=== PATIENT | female | born 1955 | race Caucasian/White ===

== ENCOUNTER 2017-05-02 08:11 | Inpatient (IN) | payer OTHER ==
[2017-04-18 09:34] VITALS: BP 117/88
[~2017-05-02] VITALS: Ht 162.6 cm; Wt 58.8 kg
[~2017-05-02 08:11] MED LIST: ACYC-113 PO; ADRENAL SUPPORT PO; ASCO10004 PO; Allergy Shots SQ; BACITRACIN 50,000 UNIT ONE; BUPIVACAINE/PF 0.5% ONE; CALC-534 PO; CEPH-368 PO; CYCL-259 PO; CYCL1DRO EACHEYE; CYCL5TAB PO; DICL75TA2 PO; DOXY100C2 PO; EPINEPHRINE 1 MG/ML, 1ML ONE; ESTR1TAB7 PO; FIBER PO; FLAX100029 PO; FOLI400T4 PO; GLUC1TAB27 PO; LACT1CAP35 PO; MELO7.5T31 PO; METH750T87 PO; OXYC-302 PO; THROMBIN 5,000 UNIT VIAL TP ONE; TRAM50TA2 PO; VANCOMYCIN 1,000 MG ONE; [UNRECOGNIZED DRUG - CODE] PO; magnesium PO; natural thyroid PO
[2017-05-02] MEDS ORDERED: LIDOCAINE 1%, 2ML ONE (12:08)
[2017-05-02] MEDS ORDERED: LACTATED RINGERS 1,000 ML IV SCH (12:29)
[2017-05-02] MEDS ORDERED: REMIFENTANIL 2 MG ONE (13:16)
[2017-05-02] MEDS ORDERED: PROPOFOL 0 ML ONE (13:16)
[2017-05-02] MEDS ORDERED: KETAMINE 10 MG/ML, 20ML ONE (13:21)
[2017-05-02] MEDS ORDERED: MIDAZOLAM 1 MG/ML, 2ML ONE (13:22)
[2017-05-02] MEDS ORDERED: FENTANYL PF 100 MCG/2ML ONE ×3 (13:22→17:20)
[2017-05-02] MEDS ORDERED: DEXAMETHASONE 4 MG/ML, 1ML ONE (14:41)
[2017-05-02] MEDS ORDERED: SUCCINYLCHOLINE 20 MG/ML, 10ML ONE (14:41)
[2017-05-02] MEDS ORDERED: PROPOFOL 10 MG/ML, 20ML ONE (14:41)
[2017-05-02] MEDS ORDERED: ONDANSETRON 2MG/ML, 2ML ONE (14:41)
[2017-05-02] MEDS ORDERED: CEFAZOLIN 1,000 MG ONE (14:41)
[2017-05-02] MEDS ORDERED: ROCURONIUM 10 MG/ML ONE (14:41)
[2017-05-02] MEDS ORDERED: PHENYLEPHRINE 10 MG/ML ONE (14:41)
[2017-05-02] MEDS ORDERED: LIDOCAINE-MPF 2% ,5ML ONE (14:41)
[2017-05-02] MEDS ORDERED: MEPERIDINE/PF 25MG/0.5ML IVPush PRN (15:30)
[2017-05-02] MEDS ORDERED: OXYcodone 5 MG/5 ML ORAL.SOL UDC PO PRN (15:30)
[2017-05-02] MEDS ORDERED: PROMETHAZINE 25 MG/ML, 1ML IV PRN (15:30)
[2017-05-02] MEDS ORDERED: DIAZEPAM 5 MG/ML, 2ML IVPush PRN ×2 (15:30→17:30)
[2017-05-02] MEDS ORDERED: PROPOFOL 100 ML ONE (15:30)
[2017-05-02] MEDS ORDERED: ACETAMINOPHEN 325 MG TABLET PO PRN (15:30)
[2017-05-02] MEDS ORDERED: HYDROmorphone 1 MG/ML, 1ML IV PRN (15:30)
[2017-05-02] MEDS ORDERED: ACETAMINOPHEN 650 MG/20.3 ML UDC ONE (17:20)
[2017-05-02] MEDS ORDERED: HYDROmorphone PCA 30 MG/30 ML ONE (17:20)
[2017-05-02] MEDS ORDERED: OXYcodone 5 MG/5 ML ORAL.SOL UDC ONE (17:20)
[2017-05-02] MEDS: FENTANYL PF 100 MCG/2ML IV PRN ×2 (17:23→17:36)
[2017-05-02] MEDS ORDERED: DIPHENHYDRAMINE 50 MG/ML, 1ML IVPush PRN (17:30)
[2017-05-02] MEDS ORDERED: PHARMACY MAY ADJ FOR RENAL FX MC PRN (17:30)
[2017-05-02] MEDS ORDERED: MAGNESIUM HYDROXIDE 8%, 30ML UDC PO PRN (17:30)
[2017-05-02] MEDS ORDERED: BISACODYL 10 MG SUPP PR PRN (17:30)
[2017-05-02] MEDS ORDERED: PROMETHAZINE 25 MG/ML, 1ML IM PRN (17:30)
[2017-05-02] MEDS ORDERED: HYDROmorphone PCA 30 MG/30 ML IV PRN (17:30)
[2017-05-02] MEDS ORDERED: ONDANSETRON 2MG/ML, 2ML IVPush PRN (17:30)
[2017-05-02] MEDS ORDERED: OXYcodone/APAP 5/325MG TABLET PO PRN (17:30)
[2017-05-02] MEDS ORDERED: MEPERIDINE/PF 100 MG/ML IM PRN (17:30)
[2017-05-02 19:30] VITALS: BP 123/81
[2017-05-02] MEDS: TEMPLATE NON-FORMULARY MED. (Cyclosporine (Restasis) 1 DROP) EACHEYE SCH (21:00)
[2017-05-02] MEDS: SODIUM CHLORIDE FLUSH 10ML SYR IVF SCH (21:00)
[2017-05-02] MEDS: CEFAZOLIN PMX 1GM/50ML 50 ML IVPB SCH (23:16)
[2017-05-02] MEDS: NS + 20MEQ KCL 1,000 ML IV SCH (23:18)
[2017-05-03 01:20] VITALS: BP 107/75
[2017-05-03 05:10] LABS: HEMATOCRIT 38.1 % (34.6-47.8); HEMOGLOBIN 12.9 g/dL (11.7-16.4); WHITE BLOOD COUNT 10.5 x10^3/uL (3.4-10)
[2017-05-03 05:22] LABS: BLOOD UREA NITROGEN 12 mg/dL (7-18)
[2017-05-03] MEDS: CEFAZOLIN PMX 1GM/50ML 50 ML IVPB SCH (06:20)
[2017-05-03 06:45] VITALS: BP 148/66
[2017-05-03] MEDS: SODIUM CHLORIDE FLUSH 10ML SYR IVF SCH ×2 (08:42→21:00)
[2017-05-03] MEDS: TEMPLATE NON-FORMULARY MED. (Cyclosporine (Restasis) 1 DROP) EACHEYE SCH ×2 (08:42→21:00)
[2017-05-03] MEDS: SENNA/DOCUSATE TABLET PO SCH (08:42)
[2017-05-03] MEDS: DIAZEPAM 5 MG TABLET PO PRN ×2 (08:46→21:17)
[2017-05-03 12:40] VITALS: BP 103/68
[2017-05-03] MEDS: METHOCARBAMOL 750 MG TABLET PO PRN (15:00)
[2017-05-03] MEDS: NS + 20MEQ KCL 1,000 ML IV SCH (18:46)
[2017-05-03 19:23] VITALS: BP 115/73
[2017-05-04 01:50] VITALS: BP 118/69
[2017-05-04 05:11] LABS: HEMATOCRIT 33.6 % (34.6-47.8); HEMOGLOBIN 11.7 g/dL (11.7-16.4); WHITE BLOOD COUNT 11.1 x10^3/uL (3.4-10)
[2017-05-04] MEDS: METHOCARBAMOL 750 MG TABLET PO PRN (05:41)
[2017-05-04 07:13] VITALS: BP 124/70
[2017-05-04] MEDS: SENNA/DOCUSATE TABLET PO SCH (08:49)
[2017-05-04] MEDS: TEMPLATE NON-FORMULARY MED. (Cyclosporine (Restasis) 1 DROP) EACHEYE SCH ×2 (08:50→21:10)
[2017-05-04] MEDS: SODIUM CHLORIDE FLUSH 10ML SYR IVF SCH ×2 (08:50→21:00)
[2017-05-04] MEDS: HYDROmorphone 2MG TABLET PO PRN ×3 (08:50→16:25)
[2017-05-04] MEDS: DEXAMETHASONE 4 MG TABLET PO SCH ×3 (09:18→21:09)
[2017-05-04] MEDS: TIZANIDINE 4MG TABLET PO PRN ×3 (09:50→22:40)
[2017-05-04 14:50] VITALS: BP 116/77
[2017-05-04 19:44] VITALS: BP 105/70
[2017-05-05 02:10] VITALS: BP 102/63
[2017-05-05] MEDS: HYDROmorphone 2MG TABLET PO PRN (03:21)
[2017-05-05 05:39] LABS: HEMATOCRIT 35.7 % (34.6-47.8); HEMOGLOBIN 12.1 g/dL (11.7-16.4); WHITE BLOOD COUNT 12.2 x10^3/uL (3.4-10)
[2017-05-05 06:56] VITALS: BP 103/65
[2017-05-05] MEDS: TEMPLATE NON-FORMULARY MED. (Cyclosporine (Restasis) 1 DROP) EACHEYE SCH ×2 (09:00→23:08)
[2017-05-05] MEDS: SENNA/DOCUSATE TABLET PO SCH (09:04)
[2017-05-05] MEDS: SODIUM CHLORIDE FLUSH 10ML SYR IVF SCH ×2 (09:04→23:08)
[2017-05-05] MEDS: DEXAMETHASONE 4 MG TABLET PO SCH ×3 (09:04→23:08)
[2017-05-05] MEDS: TIZANIDINE 4MG TABLET PO PRN ×2 (09:04→17:00)
[2017-05-05 12:29] VITALS: BP 101/64
[2017-05-05 19:44] VITALS: BP 103/64
[2017-05-05] MEDS: DIAZEPAM 5 MG TABLET PO PRN (23:14)
[2017-05-06 04:58] VITALS: BP 114/74
[2017-05-06 05:38] LABS: HEMATOCRIT 32.4 % (34.6-47.8); HEMOGLOBIN 11.1 g/dL (11.7-16.4); WHITE BLOOD COUNT 11.7 x10^3/uL (3.4-10)
[2017-05-06] MEDS: TIZANIDINE 4MG TABLET PO PRN (06:40)
[2017-05-06 07:07] VITALS: BP 100/62
[2017-05-06] MEDS ORDERED: TIZA2TAB PO (08:38)
[2017-05-06] MEDS ORDERED: HYDR2TAB40 PO (08:38)
[2017-05-06] MEDS ORDERED: METH4TAB2 PO (08:38)
[2017-05-06] MEDS: TEMPLATE NON-FORMULARY MED. (Cyclosporine (Restasis) 1 DROP) EACHEYE SCH (08:51)
[2017-05-06] MEDS: DEXAMETHASONE 4 MG TABLET PO SCH (08:51)
[2017-05-06] MEDS: SENNA/DOCUSATE TABLET PO SCH (08:51)
[2017-05-06] MEDS: SODIUM CHLORIDE FLUSH 10ML SYR IVF SCH (08:51)
[2017-05-06] MEDS ORDERED: CYCL-259 PO (09:51)
== END 2017-05-06 10:25 | disposition home or self-care (01) | DRG 460 ==
LOC: ORIP 11:25 → 4NOR 18:32 → DCLOUNGE 05-06 09:53
PROVIDERS: ADMIT Neurological Surgery; ATTEND Neurological Surgery
PROC: 0SG30AJ Fusion of Lumbosacral Joint with Interbody Fusion Device, Posterior Approach, Anterior Column, Open Approach (ICD-10-PCS; 2017-05-02)
PROC: 01NB0ZZ Release Lumbar Nerve, Open Approach (ICD-10-PCS; 2017-05-02)
PROC: 0SP004Z Removal of Internal Fixation Device from Lumbar Vertebral Joint, Open Approach (ICD-10-PCS; principal; 2017-05-02 14:30)
DX: M48.061 Spinal stenosis, lumbar region without neurogenic claudication (principal); M51.17 Intervertebral disc disorders with radiculopathy, lumbosacral region; Z88.8 Allergy status to other drugs, medicaments and biological substances; Z87.891 Personal history of nicotine dependence
CPT/HCPCS: 36415; 72100; 80048; 82040; 85025; 86850; 86900; 95938; 95941; C1713; C1776; J0171; J0690; J1100; J1170; J2250; J2405; J2550; J2704; J3010; J3370; J3480; J3490; C1762; J0330; J2370; J7120